=== PATIENT | female | born 1980 | race Caucasian/White ===

== ENCOUNTER 2016-10-12 05:47 | Day surgery (SDC) | payer OTHER ==
[~2016-10-12] VITALS: Ht 167.6 cm; Wt 125.7 kg
[2016-10-12] VITALS (7 sets, daily range): BP systolic 127–155; BP diastolic 70–98; PULSE 71–103; RESP 16–24; O2SAT 97–100
[2016-10-12] MEDS: Lactated Ringer's 1,000 ML IV SCH ×7 (05:00→23:58)
[~2016-10-12 05:47] MED LIST: ACET-2605 PO; IBUP800T28 PO; OXYC1TAB24 PO
[2016-10-12] MEDS ORDERED: Dexamethasone 4 mg/mL Inj ONE (05:48)
[2016-10-12] MEDS ORDERED: fentaNYL-PF 50 mCg/mL 2 mL Inj ONE (05:48)
[2016-10-12] MEDS ORDERED: Neostigmine 1 mg/mL 10 mL Inj ONE (05:48)
[2016-10-12] MEDS ORDERED: Rocuronium 10 mg/mL 5 mL Inj ONE (05:48)
[2016-10-12] MEDS ORDERED: Ondansetron 2 mg/mL 2 mL Inj ONE (05:48)
[2016-10-12] MEDS ORDERED: Propofol 10,000 mCg/mL 20 mL Inj ONE (05:48)
[2016-10-12] MEDS ORDERED: CeFAZolin Inj 3 Gm/ D5W 50 mL Bag IV ONE (05:49)
[2016-10-12] MEDS: CeFAZolin Inj 3,000 MG in Dextrose 5% 100 ML IV SCH ×2 (06:00→07:40)
--- NOTE | 2016-10-12 06:42 | PCM.HPANE ---
Patient Data Surgeon Admitting Provider: Attending Provider:Ara Emmanuel MD Primary Care Physician:Cris Freitas MD Other Provider:Justin Nicole Anesthesia Reason for Visit Chronic Salpingitis Ht/WT & BMI Height (Feet): 5 Height (Inches): 6.00 Weight (Kilograms): 125.5 Body Mass Index 44.00 Allergies Coded Allergies: No Known Allergies (Verified , 10/09/16) Past Anesthesia History Anesthesia History: Denies:: Anesthesia Reactions, Malignant Hyperthermia Diabetes History Hx Diabetes?: No MRSA MRSA: No Medications Home Meds Incl Beta Annabelle: No Reported Medications oxyCODONE-Acetaminophen 5-325 mg 1 Each Tablet1 Tab PO Q6H PRN For Pain Ref 0 10/09/16 Ibuprofen 800 Mg [id number] Mg PO TID PRN For Pain Ref 0 10/09/16 Acetaminophen/Diphenhydramine (Tylenol Pm Ex-Strength Caplet)500 Mg-25 Mg Tablet2 Each PO HS PRN prn 10/09/16 History History of ENT Problems?: No Hx of Heart Problems?: Yes Cardiovascular History: Positive for:: 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 SLEEP STUDY 05/2016) Denies:: Oxygen Administration Hx Neurologic Problems?: No Hx of GI Problems?: Yes Other GI Pertinent History: S/P APPY Hx of Problems?: No Female Hx: Denies:: Currently Problems with Breasts? Skin History: Denies:: History Skin Disorders? Pressure Ulcers Hx Musculoskeletal Problems?: Yes Musculoskeletal History: Positive for:: Back Injury (HX LOWER BACK PAIN) Musculoskeletal Trauma (hx of ganglion cyst, CTR) Hx of Psycho/Social Problems?: No Hx Surgeries?: Yes (ovarian cyst, appe, low back, popliteal tunnel, ganglion cyst, CTR) Hx Any Other Health Problems?: Yes Other History: Positive for:: Hospitalization (CHILDBIRTH) Denies:: Cancer Endocrine Disease Thyroid Disease History Blood Transfusions: Positive for:: Accept Blood Products? Denies:: Blood Transfusions Hx Diabetes: No Hx Alcohol Use: YesHx Substance Use: No Smoking Status: Never Smoker Have You Smoked inLast 12 mo: No Stop/Bang S-Snoring: Do You Snore Loudly: No T-Tired: feel tired, fatigued: Yes O-Obsered: Observed not breath: No P-Blood Pressure: treated: No B- Body Mass Index > 35 kg/m2: Yes A- Age over 50: No N- Neck Large Circumference: Yes G- Gender Male: No TULIO Total Score: 3 TULIO Risk Assessment: High Risk, =/>3 Yes TULIO Category 2: Yes TULIO Category 4 OutPt Procedure: Yes Risk Assessment Category Category 1A: Patient has history of documented sleep apnea, and HAS NOT received any narcotic, sedative or anesthesia administration during this stay. Category 1B: Patient has history of documented sleep apnea, and HAS received any narcotic , sedative or anesthesia administration during this stay Category 2: Patient has SUSPECTED Obstructive Sleep Apnea, and HAS received any narcotic , sedative or anesthesia administration during this stay. Category 3: Patient has SUSPECTED Obstructive Sleep Apnea and HAS NOT received narcotic, sedative or anesthesia administration during this stay. Category 4: Outpatient in Procedural Areas with known sleep apnea or who screen positive for High Risk via the STOP/BANG questionnaire. Exam Exam Vital Signs Vital Signs Date Time Temp Pulse Resp B/P Pulse Ox O2 Delivery O2 Flow Rate FiO2 10/12/16 06:13 CPAP/BIPAP 10/12/16 06:12 36.0 75 18 129/74 100 Room Air General Appearance: Alert, Oriented X3, Cooperative, No Acute Distress HEENT/AIRWAY: MP 2 Lungs: Clear to Auscultation, Normal Air Movement Heart: Exam Unremarkable, Regular Rate/Rhythm, No Murmurs/Rubs/Gallops Meds/Labs/Diagnostics Admission Meds Current Medications Lactated Ringer's (Lr) 1,000 ml @ 120 mls/hr Q8H20M IV Last administered on t 05:24; Start 10/12/16 at 05:00; Stop 10/12/16 at 13:19 Plan Impression Patient chart reviewed, patient interviewed and anesthestic plan with risks, benefits, and alternatives discussed, and informed consent obtained. NPO Status: 10/11 at 2200 ASA Physical Status: ASA3 Severe Disease Anesthetic Plan: GA Bene/Risks/Altern/Consents: Yes HP Complete Prior to Induction: Yes Natasha Sweeney MD Oct 12, 2016 06:42
[2016-10-12] MEDS ORDERED: Bupivacaine 0.5%/EPI 50 mL Inj INFILTRATE ONE (07:30)
[2016-10-12] MEDS ORDERED: MetoCLOpramide 5 mg/mL 2 mL Inj IVPUSH PRN ×2 (08:15→13:10)
[2016-10-12] MEDS ORDERED: Labetalol 5 mg/mL 4 mL Inj IV PRN (08:15)
[2016-10-12] MEDS ORDERED: Atropine 0.4 mg/mL Inj IVPUSH PRN (08:15)
[2016-10-12] MEDS ORDERED: EPHEDrine Sulfate 50 mg/mL Inj IVPUSH PRN (08:15)
[2016-10-12] MEDS ORDERED: Lactated Ringer's 1,000 ML IV SCH (08:15)
[2016-10-12] MEDS ORDERED: Phenylephrine 10,000 mCg/mL Inj IVPUSH PRN (08:15)
[2016-10-12] MEDS ORDERED: Lactated Ringer's 500 ML IV PRN (08:15)
[2016-10-12] MEDS ORDERED: Dexamethasone 4 mg/mL Inj IVPUSH PRN (08:15)
[2016-10-12] MEDS ORDERED: Ondansetron 2 mg/mL 2 mL Inj IVPUSH PRN ×2 (08:15→13:10)
[2016-10-12] MEDS ORDERED: hydrALAZINE 20 mg/mL Inj IVPUSH PRN (08:15)
[2016-10-12] MEDS ORDERED: Acetaminophen IV 1,000 MG in IV Premix 1 EACH IV PRN (13:10)
[2016-10-12] MEDS ORDERED: Senna-Docusate 8.6-50 mg Tablet PO PRN (13:10)
[2016-10-12] MEDS ORDERED: oxyCODONE-Acetamin 5-325 mg Tablet PO PRN (13:10)
[2016-10-12] MEDS ORDERED: Alum-Mag Hydrox-Simeth 30 mL Suspension PO PRN (13:10)
[2016-10-12] MEDS: fentaNYL-PF 50 mCg/mL 2 mL Inj IVPUSH PRN ×2 (13:32→14:00)
[2016-10-12] MEDS: HYDROmorphone 1 mg/mL Inj IVPUSH PRN ×2 (13:32→15:46)
--- NOTE | 2016-10-12 14:05 | PCM.ANEP1 ---
Post Anesthesia Phase 1 PACU Phase 1 Assessment Vital Signs Vital Signs Date Time Temp Pulse Resp B/P Pulse Ox O2 Delivery O2 Flow Rate FiO2 10/12/16 06:13 CPAP/BIPAP 10/12/16 06:12 36.0 75 18 129/74 100 Room Air Anesthetic Administered: GA Level of Alertness: Awake, talking [place]'s with Equal Strength: Yes Pain: No Nausea or Vomiting: No Oxygen Delivery: Simple Mask Lungs: Clear to Auscultation, Normal Air Movement Natasha Sweeney MD Oct 12, 2016 14:05
--- NOTE | 2016-10-12 14:56 | PCM.ANEP2 ---
Post Anesthesia Evaluation ASA/CMS Post Anesthesia VS in Patient's Normal Range?: Yes Resp Stable; Airway Patent?: Yes CV Function & Hydration Stable: Yes Mental Status Recovered?: Yes Pain control Satisfactory?: Yes N/V Control Satisfactory?: Yes Natasha Sweeney MD Oct 12, 2016 14:56
[2016-10-12 15:50] LABS: BASOPHILS % (AUTO) 0.1 % (0-3); EOSINOPHILS % (AUTO) 0 % (0-5); MONOCYTES % (AUTO) 2.5 % (4-12); Mean Corpuscular Hemoglobin 24.7 pg (27.0-35.0); Mean Corpuscular Volume 76.8 fL (81-100); NEUTROPHILS % (AUTO) 93.2 % (40-74); Platelet Count 231 bil/L (150-400)
--- NOTE | 2016-10-12 17:06 | NUR ---
Post op Pt arrived on gurney at 1435 from PACU for lap hysterectomy. Pt denies pain at this time. IV infusing with surgical tubing, pt on 2L NC, SCD's in place. 4 lap sites with duoderm and no dressings. Peripad in place with small amount of blood. Pt sleepy and TULIO positive, connected to [employer] [employer] for monitoring. Ortiz in place and draining to gravity, [place] urine. Pt oriented to room and has call light. Called for belongings and in day surgery.
[2016-10-12] MEDS: Senna-Docusate 8.6-50 mg Tablet PO SCH (20:22)
[2016-10-13 00:23] VITALS: BP 148/85; PULSE 97; RESP 18; O2SAT 94
--- NOTE | 2016-10-13 02:55 | NUR ---
Nausea/Vomiting Pt. shannon. some po fluids yet reluctant to try po analgesia r/t earlier nausea and throat pain.MS IVP eff. for pain control thus far.VSS.Abd. soft with hypoactive BT,denies passing flatus.UOP qs via jordan.Sats on RA in the mid to high 90s.Sleeping soundly at this time and resting comfortably.Will cont. to monitor.
--- NOTE | 2016-10-13 02:57 | OP ---
[address] [address] OPERATIVE REPORT PATIENT: NIKKIE ELLISON : 1980 MR#: [id number] ADMIT: 10/12/2016 JOB ID: [id number] DATE OF SURGERY: 10/12/2016 PREOPERATIVE DIAGNOSIS(ES): Dysfunctional uterine bleeding, hydrosalpinx. POSTOPERATIVE DIAGNOSIS(ES): 1. Dysfunctional uterine bleeding. 2. Ovarian cyst. PROCEDURE PERFORMED: 1. Total laparoscopic hysterectomy with bilateral salpingectomy with vaginal closure of the vaginal cuff. 2. Cystoscopy. 3. Lysis of adhesions. SURGEON: Ara Emmanuel MD, CASE ASSISTANT: Yareli Rueda MD and Miriam Garnett MD who were necessary for safe completion of the case given the patient's bleeding and difficulty with intubation. ANESTHESIA: General. ESTIMATED BLOOD LOSS: 900 cc. FLUID REPLACEMENT: 1300 cc of crystalloid. URINE OUTPUT: 200 cc of clear yellow urine. FINDINGS: Nine week size uterus. Normal appearing left fallopian tube. Scar tissue along the right fallopian tube. Small complex appearing right ovarian cyst. COMPLICATIONS: Difficulty maintaining O2 saturation with general anesthesia. INDICATIONS: This is a 36-year-old, G4, P4-0-0-4 female who presented to our clinic for followup of chronic pelvic pain. She had initially been diagnosed with a complex right-sided ovarian cyst. Followup ultrasound revealed improvement of this, but new finding of a right-sided hydrosalpinx. She had persistent abdominal pain as well as heavy vaginal bleeding with menses and she requested definitive treatment with hysterectomy and bilateral salpingectomy and cystoscopy. Risks, benefits and alternatives were discussed with her beforehand and she elected to proceed. DESCRIPTION OF PROCEDURE: The patient was taken to the operating room. She was placed in dorsal lithotomy position. She was prepped and draped in the usual sterile fashion. A large size V-Care uterine manipulator was then placed after the cervix was dilated to allow placement of this. A Ortiz catheter was placed with return of clear yellow urine. Next, attention was turned to the abdomen. A 1 cc of local anesthetic was injected infraumbilically and a Veress needle was inserted through the midline of the umbilicus and the abdomen was then insufflated with appropriately rising CO2 pressure. With attempted placement with a 5 mm port however, there was noted to be resistance and so after three failed attempts at this, left upper quadrant entry was completed by injecting local anesthetic, 2 cc underneath the ribcage in the midclavicular line, followed by a 5 mm incision with direct visualized placement of the trocar. Examination of the abdomen revealed some adhesions from her previous midline vertical incision for a left ovarian cystectomy completed previously and these were taken down with the Thunderbeat as well as with blunt dissection. After this was appropriately taken down, the infraumbilical port was then able to be placed with direct visualization. Next, a left lower quadrant port was placed after injection with local anesthetic. An 8 mm incision was made and an 8 mm port was placed. The same process was repeated on the right lower quadrant where a 5 mm port was then placed under direct visualization. The patient was then placed in Trendelenburg position to displace the bowel from the abdominal cavity. The ureters were identified bilaterally and noted to be away from the area of operation. The right fallopian tube was inspected and noted to be normal in appearance and was elevated and was then undermined using the Thunderbeat along the mesosalpinx and transected near the uterine cornua. This was then removed from the abdominal cavity and sent to Pathology. Next, the round ligament was then transected using the Thunderbeat, followed by the utero-ovarian ligament. This dissection was then carried down the broad ligament, first the anterior leaf followed by the posterior leaf until the uterine artery was then skeletonized. This was carried across the lower uterine segment the vesicouterine peritoneum off of the lower uterine segment. The left uterine artery was then cauterized. Attention was then turned to the right side. There was noted to be significant scarring along the right fallopian tube and this was then elevated as best as possible, undermined with the Thunderbeat along the mesosalpinx and then transected to the level of the cornua. The utero-ovarian ligament was then cauterized followed by the round ligament, facilitating entrance to the broad ligament. This was then skeletonized first with the anterior leaf of the broad ligament followed by the posterior leaf using the Thunderbeat until the uterine artery was then skeletonized. The uterine artery was then cauterized and the vesicouterine fold was then connected with the previously dissected left side to the midline and the bladder peritoneum was reflected downward off the lower uterine segment. On inspection, she was noted to have a very long cervix and her uterine manipulator vaginal cuff was noted to be low in the pelvis. After several attempts at making an appropriate colpotomy at the level of the vaginal cuff, it was noted to be significantly lower and this was then transected at the level of the vaginal cuff until the uterine manipulator ring was identified. This was also impeded by bowel which made visualization difficult. Using the cautery, the Thunderbeat was then carried around to the ring of the uterine manipulator and when in its entirety, the uterus was then removed from the vagina and a sponge and glove was then placed. She did have moderate amount of vaginal bleeding from the cuff at the area of the colpotomy. Next, the V-Loc suture was then brought into the abdominal cavity and a single stitch was placed at the left apex of the vaginal cuff. Following this, anesthesia did have difficulty keeping the patient's O2 saturations up and because of this the pneumoperitoneum needed to be released, and the decision was made to proceed with vaginal cuff closure vaginally. After turning vaginally, the corner of the vaginal cuff was then grasped with an Allis clamp and using 0-Vicryl was closed with a running nonlocking fashion across the cuff. After good closure was noted, attention was then again turned abdominally where the pneumoperitoneum was re-established. The V-Loc suture that had been started was then cut and removed from the abdominal cavity and the pelvis was irrigated with good hemostasis noted. The patient did not tolerate anymore pneumoperitoneum beyond this and anesthesia requested completion of the case due to patient's O2 saturation instability. So her pneumoperitoneum was released when it was felt that her cuff was hemostatic. Cystoscopy was then performed which revealed intact bladder with patent ureters with good flow bilaterally. The skin was then closed with 4-0 Vicryl and Dermabond was then placed on top of this. Patient recovered in PACU. All sponge, needle and instrument counts were correct.
[2016-10-13 05:41] VITALS: BP 125/73; PULSE 63; RESP 16; O2SAT 95
[2016-10-13 05:42] LABS: BASOPHILS % (AUTO) 0.1 % (0-3); EOSINOPHILS % (AUTO) 0 % (0-5); MONOCYTES % (AUTO) 7.9 % (4-12); Mean Corpuscular Hemoglobin 25.3 pg (27.0-35.0); Mean Corpuscular Volume 77.5 fL (81-100); NEUTROPHILS % (AUTO) 79.8 % (40-74); Platelet Count 246 bil/L (150-400)
[2016-10-13] MEDS: Senna-Docusate 8.6-50 mg Tablet PO SCH (08:54)
[2016-10-13 10:26] VITALS: BP 147/77; PULSE 89; RESP 16; O2SAT 96
--- NOTE | 2016-10-13 10:56 | PCM.DIGYN ---
Surgical Discharge Instruction Dates of Hospitalization Date of Hospital Admission Providers Admitting Physician: Primary Care Physician: Cris Freitas MD Attending Physician: Ara Emmanuel MD Diagnosis at Time of Discharge Diagnosis at time of discharge s/p TLH POD1 Post-operative diagnosis s/p TLH POD1 Problems: Diet Discharge Diet: No restrictions Activity Discharge Activity-General: Try not to overdue, Be up and about, Balance rest and activity, No lifting >10 pounds for 4-6 weeks, No driving while taking narcotic Dressing and Incisional Care Hygiene: May shower, NO bathtub, hot tub or whirlpool Additional Instructions Discharge Instructions Please have no sex and nothing in vagina for 6 weeks Please call office or go to ER for evaluation if heavy vaginal bleeding,severe abdominal pain, foul smelling discharge, fever more than 100.4 Please make appointment 2 weeks and 6 weeks after procedure Please take motrin and percocet for pain as needed not more frequent than every 6 hrs Follow Up Plan Follow Up Plan 2 and 6 weeks Follow-up appointment: Weeks Call your provider for: Fever, Chills, Shortness of breath, Vomitting, Drainage at incision, Heavy vaginal bleeding, Wound redness, Increasing pain Yareli Rueda MD Oct 13, 2016 10:56
[2016-10-13] MEDS ORDERED: OXYC1TAB24 PO (10:58)
[2016-10-13] MEDS ORDERED: DOCU-41 PO (10:58)
[2016-10-13] MEDS ORDERED: IBUP800T28 PO (10:58)
--- NOTE | 2016-10-13 11:10 | NUR ---
TRANSFER TO OR Report given to OR Nurse. Patient's IV was saline locked. Had patient ambulate to bathroom and remove all personal clothing. in room with patient and accompanied her upstairs. Patient left room in hospital bed. Addendum: 10/13/16 at 1136 by ANGÉLICA GRAY RN ERROR-DOCUMENTED ON WRONG PATIENT
--- NOTE | 2016-10-13 11:37 | NUR ---
JORDAN REMOVAL Received verbal order to remove patient's jordan catheter in anticipation of discharge. Removed @ 0900 without any difficulty. Encouraging oral fluids.
[2016-10-13] MEDS: Lactated Ringer's 1,000 ML IV SCH (13:07)
--- NOTE | 2016-10-13 14:49 | NUR ---
DISCHARGE Patient was able to void without any problem after jordan catheter removal. Cramping, aching abdominal pain controlled with oral percocet and ibuprofen. Able to tolerate general diet for breakfast and lunch. No nausea/vomiting. Removed saline lock IV from Left hand, catheter intact. Reviewed discharge paperwork with patient including activity restrictions. Patient verbalized understanding. Got dressed independently and was wheeled out to personal vehicle, driven by .
--- NOTE | 2016-10-14 17:25 | DIS ---
[address] [address] DISCHARGE SUMMARY PATIENT: NIKKIE ELLISON : 1980 MR#: [id number] ADMIT: 10/12/2016 JOB ID: [id number] DIS: 10/13/2016 HOSPITAL COURSE: A 36-year-old female, status post TLH and cystoscopy. This is postop day one. The patient is doing well after the procedure. She was using IV morphine for pain control. This morning is switched to Percocet. She tolerated her diet. No nausea, vomiting. Her Ortiz catheter was removed this morning. She did not void yet. She has no vaginal bleeding. No other discomfort. PHYSICAL EXAMINATION: She is afebrile. Cardiac: No murmur. Pulmonary: Clear. Abdomen: Soft. Incision clean and dry. No significant tenderness. Normal bowel sounds at all four quadrants. Extremities: Nontender. Her CBC: Her H and H was 11.8/36.7 yesterday at 3:40 p.m. This morning is was 10.10/30.6. Her white count 19.5 yesterday and 13.5 today. ASSESSMENT AND PLAN: A 36-year-old female, postoperative day one after total laparoscopic hysterectomy (TLH) and a cystoscopy. The EBL during the procedure was about 500 cc. 1. The patient is stable after the procedure. She is afebrile. Her pulse was in 80s to 90s, her blood pressure in normal range. No dizziness noted, no headache with soft abdomen. Normal bowel sounds. There is no indication of internal bleeding. 2. Her pain is okay controlled at this time. We will continue with p.o. medication. Plan to discharge after lunch when confirmed that pain is well controlled, that she could void well, and she could ambulate well. 3. I will prescribe her Motrin 800 mg with 40 pills, she can take every 8 hours; Percocet 5/325, with 30 pills, she can take every 6 hours as needed and also prescribed Colace 100 mg twice a day for a month as needed. 4. The patient is instructed that if there is any heavy vaginal bleeding, severe abdominal pain, fever more than 100.4, short of breath, foul-smelling discharge, she should call office or go to the ED for evaluation. She will need to follow up two weeks and six weeks after delivery in the office.
--- NOTE | 2016-10-18 10:46 | PATH ---
SURGICAL PATHOLOGY Attending Physician:Ara Emmanuel, CASE STATUS: Signed Out PATIENT NAME: NIKKIE ELLISON PID: [id number] : 1980 DATE COLLECTED:10/12/2016 00:00 SPECIMEN: 1: Fallopian Tube, Biopsy 2: Uterus +/- tubes/ovaries, except neoplastic, prolapse CLINICAL HISTORY: ABNORMAL UTERINE BLEEDING PELVIC PAIN 1). LEFT FALLOPIAN TUBE 2). UTERUS & RIGHT FALLOPIAN TUBE FINAL DIAGNOSIS: 1. Left Fallopian Tube, Salpingectomy: Benign fallopian tube with no evidence of neoplasia. 2. Uterus and Right Fallopian Tube, Hysterectomy and Salpingectomy: 1. Benign endometrial polyp. 2. Secretory endometrium with no evidence of neoplasia or hyperplasia. 3. Fallopian tube and cervix with no evidence of neoplasia. ICD10: N94.6 N84.0 GROSS DESCRIPTION: The specimens are received in formalin, labeled with the patient's name, and sublabeled as the following: (1) left fallopian tube; (2) uterus & right fallopian tube. (1) The specimen consists of a fimbriated fallopian tube (length-6.8 cm, diameter-0.5 cm). The serosa is kwan-pink smooth and shiny. The lumen is hernandez and unremarkable. No nodules, masses or lesions are identified. Section code: (1A) fallopian tube, serially sectioned, solar sales representative; (1B) fimbria, bivalved, entirely submitted. (2) The specimen consists of a uterus (187 g, 5.5 cm AP, 11.9 cm SI, 7.2 cm ML) and possible fallopian tube. The ovaries are absent. There is marked congestion of the blood vessels. The cervix (2.5 cm AP, 3.5 cm ML) has a vaginal cuff (up to 2.4 cm in depth), transverse os and patent endocervical canal. The endometrium (average thickness-0.4 cm) is red-brown smooth and velvety. There is a soft 0.5 cm polyp in the fundus. The myometrium (thickness-2.5 cm) is hernandez-white and unremarkable. The serosa is valdez, smooth and shiny with a small 0.2 cm white nodule. A 1 cm long tubular structure, 0.4 cm in diameter, is present on one side of the uterus, possibly fallopian tube. Section code: (2A-2B) anterior cervix, bisected and submitted SI; (2C-2D) posterior cervix, bisected and submitted SI; (2E, 2F) anterior endomyometrium; (2G, 2H) posterior endomyometrium; (2I, 2J) Endometrium with polyp; (2K, L) Possible fallopian tube, serosal nodule and endometrial strips. 10/13/16 ICD-9 CODES: CPT CODES: 1: 41668 2: 54486 Electronically Signed Out Tenisha Goncalves MD [facility] [address], [place] [address] Technical component performed at [facility], [facility] [address], [place], [address]
== END 2016-10-13 14:35 | disposition home or self-care (01) ==
LOC: SAS 05:47 → OSC 15:03 → SAS 10-13 14:35
PROVIDERS: ATTEND Obstetrics & Gynecology
PROC: 0UTC4ZZ Resection of Cervix, Percutaneous Endoscopic Approach (ICD-10-PCS; 2016-10-12)
PROC: 0UT74ZZ Resection of Bilateral Fallopian Tubes, Percutaneous Endoscopic Approach (ICD-10-PCS; 2016-10-12)
PROC: 0UT94ZZ Resection of Uterus, Percutaneous Endoscopic Approach (ICD-10-PCS; principal; 2016-10-12 07:15)
DX: N93.8 Other specified abnormal uterine and vaginal bleeding (principal); N70.11 Chronic salpingitis; N83.291 Other ovarian cyst, right side; G89.29 Other chronic pain; R10.2 Pelvic and perineal pain
CPT/HCPCS: 36415; 58571; 85025; 88305; 88307; J0690; J1100; J1170; J2175; J2250; J2270; J2405; J2710; J2765; J3010; J7120

== ENCOUNTER 2016-10-25 09:33 | Emergency (ER) | payer OTHER ==
[~2016-10-25] VITALS: Ht 165.1 cm; Wt 126.4 kg
[~2016-10-25 09:33] MED LIST changes: +DOCU-41 PO
[2016-10-25 09:36] VITALS: BP 139/82; PULSE 91; RESP 10; O2SAT 100
--- NOTE | 2016-10-25 10:08 | ED.REPORT ---
HPI-General Illness Date of Service Oct 25, 2016 ED Provider: Dr. Reyes Pt is a 36 y/o female w/ a hx of uterine and cervical CA s/p recent hysterectomy presenting to the ED c/o constipation onset last week. She c/o associated rectal and abdominal pain when bearing down for a BM, fever of 101.5 F last night, nausea, vomiting, cramping abdominal pain, decreased appetite, diaphoresis. She denies dysuria, chills. The patient had a hysterectomy 13 days [address] performed [address] Dr[address] Emmanuel because of abnormally heavy vaginal bleeding for months. Her last bowel movement was last week. She stopped taking pain medication 5 days ago. Remedies attempted include Miralax, stool softeners, clear liquid diet, enema, all without relief. She has not had previous problems with constipation. Nursing Notes Stated Complaint: CONSTIPATION/VOMITING Chief Complaint: Female Abdominal Pain Nursing Notes Reviewed: Yes Allergies: Coded Allergies: No Known Allergies (Verified , 10/09/16) Scheduled Ondansetron ODT (Ondansetron ODT) 4 Mg Tab.rapdis 4 MG PO QID Scheduled PRN Acetaminophen/Diphenhydramine (Tylenol Pm Ex-Strength Caplet) 500 Mg-25 Mg Tablet 2 EACH PO HS PRN PRN prn Docusate Sodium (Colace) 100 Mg Capsule 100 MG PO BID PRN PRN For Constipation Ibuprofen (Ibuprofen) 800 Mg Tablet 800 MG PO TID PRN PRN For Pain Ibuprofen (Ibuprofen) 800 Mg Tablet 800 MG PO Q8H PRN PRN For Mild Pain oxyCODONE-Acetaminophen 5-325 mg (oxyCODONE-Acetaminophen 5-325 mg) 1 Each Tablet 1 TAB PO Q6H PRN PRN For Pain oxyCODONE-Acetaminophen 5-325 mg (oxyCODONE-Acetaminophen 5-325 mg) 1 Each Tablet 1-2 TAB PO Q6H PRN PRN For Moderate Pain General Time Seen by MD: 10:07 Chief Complaint Other (constipation) Hx Obtained From: Patient Arrived By: Walk-in Sudden in Onset?: No Onset Occurred: 1 week ago Symptom Duration: Since onset Location: : Abdomen Quality: Cramping Radiation: : Does not radiate Severity: Current: Mild Severity: Maximum: Mild Recent Healthcare: Previous surgery Similar Sx Previous: No Past Medical History Past Medical History Asthma Low back pain Hx ganglion cyst Hx uterine cancer Hx cervical cancer Past Surgical History Hysterectomy Ovarian cyst, Appendectomy Low back Popliteal tunnel Smoking History Never Smoker Social History Alcohol Use: "Social" Drug Use: Denies drug use Ambulatory Status Independent Review of Systems Full Review of Systems Constitutional: Reports: Fever, Denies: Chills Respiratory: Denies: Non-productive cough, Shortness of breath Cardiovascular: Denies: Chest pain, Dyspnea on exertion GI: Reports: Abdominal pain, Constipation, Nausea, Vomiting Female: Denies: Dysuria, Urinary frequency Skin: Reports Diaphoresis, Denies Rash Complete sys rev & neg: except as marked. Physical Exam Vital Signs Vital Signs Date Time Temp Pulse Resp B/P Pulse Ox O2 Delivery O2 Flow Rate FiO2 10/25/16 17:16 78 20 130/62 98 Room Air 10/25/16 16:08 36.4 10/25/16 15:09 78 20 130/62 98 Room Air 10/25/16 12:58 37.1 81 20 135/56 99 Room Air 10/25/16 09:36 37.2 91 10 139/82 100 Room Air Initial VS: Reviewed, Vital signs normal Head / Eyes: Atraumatic, Normocephalic, PERRL ENT: Mucous membranes moist, Conjunctiva normal, No scleral icterus Neck: Supple, Full range of motion Respiratory: Breath sounds normal, Clear to auscultation, No respiratory distress Cardiovascular: Regular rate & rhythm, Heart sounds normal, Intact distal pulses Extremities: Vascular intact, Neuro intact, No swelling, No tenderness Skin: Warm, Dry, No cyanosis Neurologic: Alert, Oriented, Nonfocal Psychiatric: Mood/affect normal, Behavior normal, Normal thought content General/Constitutional: Awake, Alert, No acute distress, Well appearing, Cooperative, Not toxic appearing Abdomen: Atraumatic, Soft, No guarding, No rebound, BS normoactive, No distention Tenderness/Guarding/Rebound: Positive: Tender epigastric (mild) Bilateral pelvic tenderness Lap ports healing well Rectum / Perineum: Atraumatic, Blood - occult heme -, No gross blood, No discharge, No fecal impaction, No fissures, No hemorrhoids, No lesions, No mass No palpable stool in vault Non-tender Interpretation & Diagnostics Lab Results Interpretation Result Diagram: 10/25/16 1030 10/25/16 1030 Test 10/25/16 10:30 10/25/16 10:49 White Blood Count 9.5th/mm3 (3.8-10.1) Red Blood Count 4.05mil/mm3 (3.90-5.20) Hemoglobin 9.9g/dL (12.0-15.6) Hematocrit 30.7% (35.0-46.0) Mean Corpuscular Volume 75.8fL (81-100) Mean Corpuscular Hemoglobin 24.4pg (27.0-35.0) Mean Corpuscular Hemoglobin Concent 32.2% (32.0-37.0) Red Cell Distribution Width 13.4% (12.3-15.4) Platelet Count 278bil/L (150-400) Neutrophils (%) (Auto) 78.7% (40-74) Lymphocytes (%) (Auto) 10.6% (14-46) Monocytes (%) (Auto) 8.8% (4-12) Eosinophils (%) (Auto) 1.5% (0-5) Basophils (%) (Auto) 0.2% (0-3) Sodium Level 138mEq/L (134-144) Potassium Level 3.9mEq/L (3.5-5.2) Chloride Level 97mEq/L (97-108) Carbon Dioxide Level 25mmol/L (18-29) Blood Urea Nitrogen 8mg/dL (6-20) Creatinine 0.82mg/dL (0.57-1.00) Estimat Glomerular Filtration Rate 114mL/min (>59) Glucose Level 100mg/dL (60-99) Calcium Level 9.2mg/dL (8.5-10.1) Magnesium Level 2.2mg/dL (1.6-2.6) Total Bilirubin 0.7mg/dL (0.0-1.2) Aspartate Amino Transf (AST/SGOT) 18U/L (0-50) Alanine Aminotransferase (ALT/SGPT) 23U/L (0-32) Alkaline Phosphatase 114U/L (25-150) Total Protein 7.4g/dL (6.4-8.4) Albumin 4.1g/dL (3.4-5.0) Lipase 24U/L (13-60) Hold [place] Top Tube Received (Received) Urine Color Dark yellow (YELLOW) Urine Appearance Hazy (CLEAR,HAZY) Urine pH 6.0 (5.0-8.0) Urine Specific [place] 1.010 (1.003-1.035) Urine Protein 100mg/dL (NEG,TRACE) Urine Glucose (UA) Negativemg/dL (NEGATIVE) Urine Ketones Negativemg/dL (NEGATIVE) Urine Occult Blood Moderate (NEGATIVE) Urine Nitrite Negative (NEGATIVE) Urine Bilirubin Negative (NEGATIVE) Urine Urobilinogen 8mg/dL (NORMAL) Urine Leukocyte Esterase Small (NEGATIVE) Urine RBC 3-10/hpf (0-2) Urine WBC >50/hpf (0-5) Urine Epithelial Cells Moderate/hpf (NONE-MOD) Urine Crystals None seen (NONE SEEN) Urine Bacteria Moderate/hpf (NONE-FEW) Urine Hyaline Casts None/lpf (NONE) Urine Granular Casts None seen (NONE SEEN) Urine Waxy Casts None seen (NONE SEEN) Urine Red Blood Cell Casts None seen (NONE SEEN) Urine White Blood Cell Casts None seen (NONE SEEN) Urine Mucus None seen (None Seen) Urine Trichomonas None seen (NONE SEEN) Urine Yeast None (NONE SEEN) Urinalysis Comment None Urine Culture Reflexed Indicated X-Ray Abdominal Interpretation IMPRESSION: No radiographic explanation for abdominal pain. Dictated by: Maximo Toscano M.D. on 10/25/2016 at 11:57 Approved by: Maximo Toscano M.D. on 10/25/2016 at 11:59 Study: 4 view Interpretation / Wet Read by: Interpret - Radiologist Re-Eval/Medical Decision Time of Eval: 17:16 Re-Evaluation/Progress Note: Pt rechecked. No relief with multiple enemas in the ED. She is requesting to be discharged and treat this as an outpatient. Informed pt of plan for treatment. Pt understands and agrees with plan for treatment. F/U instructions and RTER warnings given. All questions addressed. Consultation : Referral / Consult Name: Remberto Dorsey MD Call Returned at: 12:47 Plastic Extruding Machine Operator: Agrees with eval, Agrees with plan Note: Case discussed with GI. Recommends mineral oil enema in ED. Counseled Regarding: Diagnosis, Lab results, Need for follow-up, When/why to return to ED Discharge & Departure Primary Impression: Constipation Constipation type: unspecified constipation type Qualified Code: K59.00 - Constipation, unspecified Disposition: Home Discharge Condition All VS Reviewed: Yes Condition: Stable Patient Instructions: Constipation (ED) Additional Instructions: In the ED today we evaluated constipation. After 2 enemas, we still have no results. X-ray and exam is reassuring. We will start ondansetron for vomiting and have you continue david lax. Follow up with your Plastic Maker tomorrow. Return for increasing abdominal pain. Referrals: Cris Freitas MD (PCP) Ara Emmanuel MD Attestation Portions of this note were transcribed by Reji Zaidi. I, Dr. Reyes personally performed the history, physical exam and medical decision-making; I reviewed and confirmed the accuracy of the information in the transcribed note. Signed by Leila Oh, 10/25/16 - 1030 copies to: Ara Emmanuel MD; Cris Freitas MD, Donald L MD Oct 25, 2016 10:08 REJI ZAIDI Oct 25, 2016 10:17
[2016-10-25] MEDS ORDERED: Ondansetron 2 mg/mL 2 mL Inj IVPUSH PRN (10:25)
[2016-10-25 10:40] LABS: BASOPHILS % (AUTO) 0.2 % (0-3); EOSINOPHILS % (AUTO) 1.5 % (0-5); MONOCYTES % (AUTO) 8.8 % (4-12); Mean Corpuscular Hemoglobin 24.4 pg (27.0-35.0); Mean Corpuscular Volume 75.8 fL (81-100); NEUTROPHILS % (AUTO) 78.7 % (40-74); Platelet Count 278 bil/L (150-400)
[2016-10-25 11:08] LABS: Magnesium 2.2 mg/dL (1.6-2.6)
[2016-10-25 11:27] LABS: APPEARANCE,URINE HAZY (CLEAR,HAZY); COLOR,URINE DARK YELLOW (YELLOW); OCCULT BLOOD,URINE MODERATE (NEGATIVE); UROBILINOGEN,URINE 8 mg/dL (NORMAL)
--- NOTE | 2016-10-25 12:00 | DRSVH ---
PROCEDURE: X-RAY ACUTE ABDOMINAL SERIES ([id number]) INDICATIONS: 36 year-old female with recent hysterectomy, with abdominal pain and vomiting. TECHNIQUE: One view chest and two views of the abdomen were acquired. COMPARISON: None. FINDINGS: Surgical changes and devices: Right pelvic surgical clip is present. Chest: Lungs are clear. Heart size is normal. No pleural effusions. No pneumoperitoneum. Abdomen: Bowel gas pattern is normal. No suspicious calcifications. Visualized solid organ contour s appear normal. Bones: No suspicious bony lesions. IMPRESSION: No radiographic explanation for abdominal pain. Dictated by: Maximo Toscano M.D. on 10/25/2016 at 11:57 Approved by: Maximo Toscano M.D. on 10/25/2016 at 11:59
[2016-10-25 12:58] VITALS: BP 135/56; PULSE 81; RESP 20; O2SAT 99
[2016-10-25 15:09] VITALS: BP 130/62; PULSE 78; RESP 20; O2SAT 98
[2016-10-25] MEDS ORDERED: ONDA4TAB12 PO (17:12)
[2016-10-25 17:16] VITALS: BP 130/62; PULSE 78; RESP 20; O2SAT 98
== END 2016-10-25 17:17 | disposition home or self-care (01) ==
LOC: SED 09:33
DX: K59.00 Constipation, unspecified (principal); J45.909 Unspecified asthma, uncomplicated
CPT/HCPCS: 36415; 74022; 80053; 81000; 83690; 83735; 85025; 87086; 87088; 96374; 99285; J2405